=== PATIENT | female | born 1990 | race Caucasian/White ===

== ENCOUNTER 2020-11-25 09:42 | Emergency (ER) | payer OTHER ==
[2020-11-25 11:01] LABS: BILIRUBIN NEGATIVE (NEGATIVE); BLOOD 3+ Ery/uL (NEGATIVE); CLARITY CLEAR (CLEAR); COLOR YELLOW (YELLOW); GLUCOSE (U) NORMAL (NORMAL); LEUKOCYTES 3+ Leu/uL (NEGATIVE); NITRITE POSITIVE (NEGATIVE); PROTEIN 3+ mg/dL (NEGATIVE); SPECIFIC GRAVITY 1.015 (1.001-1.030); UROBILINOGEN 0.2 mg/dL (0.2-1.0)
[2020-11-25 11:21] LABS: BACTERIA 1+; URINARY WBC TNTC
[2020-11-25 11:22] LABS: MUCOUS TRACE
[2020-11-25 11:44] LABS: BASOPHIL 0.2 % (0-2); EOSINOPHIL 0 % (0-5); HCT 41.5 % (37.0-47.0); LYMPHOCYTE 9.5 % (15-48); MCH 31.7 pg (25.0-31.0); MCHC 33.7 g/dL (32.0-36.0); MCV 93.9 fL (78.0-100.0); MONOCYTE 8.1 % (0-12); MPV 10.1 fL (6.0-9.5); NEUTROPHIL 81.7 % (41-80); NRBC 0; PLT 308 K/uL (150-400); RBC 4.42 M/uL (4.20-5.40); RDW 14.1 % (11.5-14.0); WBC 18.4 K/uL (4.0-10.5)
[2020-11-25 12:01] LABS: ALBUMIN 3.9 g/dL (3.4-5.0); BILIRUBIN - TOTAL 0.4 mg/dL (0.2-1.0); BUN/CREAT RATIO (CALC) 16.3 RATIO; CREATININE 0.92 mg/dL (0.51-0.95); MAGNESIUM 2.1 mg/dL (1.8-2.4); TOTAL PROTEIN 7.9 g/dL (6.4-8.2)
[2020-11-25] MEDS ORDERED: BACTRIM DS TAB1 EACH PO (14:02)
[2020-11-25] MEDS ORDERED: ZOFRAN4 M1 PO (14:02)
[2020-11-25] MEDS ORDERED: NAPROXEN500 MG PO (14:02)
== END 2020-11-25 15:04 | disposition home or self-care (01) ==
LOC: FER 09:42
PROVIDERS: Emergency Medicine
DX: N10 Acute pyelonephritis (principal); F17.210 Nicotine dependence, cigarettes, uncomplicated
CPT/HCPCS: 36415; 80053; 81001; 83735; 84145; 85025; 87076; 87088; 87186; J0696; J1885; J2405; J7030

== ENCOUNTER 2020-12-24 12:20 | Emergency (ER) | payer OTHER ==
[~2020-12-24 12:20] MED LIST: BACTRIM DS TAB1 EACH PO; NAPROXEN500 MG PO; ZOFRAN4 M1 PO
[2020-12-24 13:06] LABS: BILIRUBIN NEGATIVE (NEGATIVE); BLOOD 3+ Ery/uL (NEGATIVE); CLARITY HAZY (CLEAR); COLOR YELLOW (YELLOW); GLUCOSE (U) NORMAL (NORMAL); LEUKOCYTES 1+ Leu/uL (NEGATIVE); NITRITE POSITIVE (NEGATIVE); PROTEIN 2+ mg/dL (NEGATIVE); UROBILINOGEN 0.2 mg/dL (0.2-1.0)
[2020-12-24 13:20] LABS: URINARY WBC TNTC
[2020-12-24 13:21] LABS: BACTERIA 2+
[2020-12-24] MEDS ORDERED: CEPHALEXIN500 M1 PO (13:59)
[2020-12-24] MEDS ORDERED: DIFLUCAN150 MG PO (14:01)
[2020-12-24] MEDS ORDERED: ZOFRAN4 M1 PO (14:01)
== END 2020-12-24 14:39 | disposition home or self-care (01) ==
LOC: FER 12:20
PROVIDERS: Emergency Medicine
DX: N39.0 Urinary tract infection, site not specified (principal); Z98.890 Other specified postprocedural states
CPT/HCPCS: 81001; 87076; 87088; 87186; 99283; J0696

== ENCOUNTER 2021-09-23 18:13 | Emergency (ER) | payer OTHER ==
[~2021-09-23 18:13] MED LIST changes: +CEPHALEXIN500 M1 PO; +DIFLUCAN150 MG PO
== END 2021-09-23 21:45 | disposition home or self-care (01) ==
LOC: FER 18:13
DX: L27.0 Generalized skin eruption due to drugs and medicaments taken internally (principal); T36.8X5A Adverse effect of other systemic antibiotics, initial encounter; F17.210 Nicotine dependence, cigarettes, uncomplicated; Z88.1 Allergy status to other antibiotic agents; Z28.310 Unvaccinated for COVID-19
CPT/HCPCS: J1200; J2930